=== PATIENT | female | born 1945 | race Caucasian/White ===

== ENCOUNTER 2022-06-06 14:46 | Outpatient (CLI) | payer MEDICARE, MEDICAID | END 2022-06-06 23:59 | disposition home or self-care (01) | LOC: CARD DIAG 14:46 | PROVIDERS: ATTEND Internal Medicine Cardiovascular Disease | DX: I34.81 Nonrheumatic mitral (valve) annulus calcification (principal); I34.0 Nonrheumatic mitral (valve) insufficiency | CPT/HCPCS: 93306 ==